=== PATIENT | female | born 1980 | race African-American/Black ===

== ENCOUNTER 2022-03-03 02:24 | Inpatient (IN) | payer BC ==
[2022-03-03] MEDS ORDERED: Butorphanol 1 MG/ML SDV IVPUSH PRN (04:06)
[2022-03-03] MEDS ORDERED: Water For Irrigation,Sterile 1,000 ML Container IRR PRN (04:06)
[2022-03-03] MEDS ORDERED: Sodium Chloride 0.9% 2.5 ML Syringe FLUSH PRN (04:06)
[2022-03-03] MEDS ORDERED: Sodium Chloride 0.9% 10 ML Syringe FLUSH PRN (04:06)
[2022-03-03] MEDS ORDERED: Methylergonovine 0.2 MG/1 ML Amp IM PRN (04:06)
[2022-03-03] MEDS ORDERED: Lidocaine 1% 50 ML MDV INJECT PRN (04:06)
[2022-03-03] MEDS ORDERED: Carboprost Tromethamine 250 MCG/1 ML Amp IM PRN (04:06)
[2022-03-03] MEDS ORDERED: Misoprostol 200 MCG Tab PO PRN (04:06)
[2022-03-03] MEDS ORDERED: Sodium Chloride 0.9% 20 ML SDV IV PRN (04:06)
[2022-03-03] MEDS ORDERED: Tranexamic Acid 1,000 MG in Sodium Chloride 0.9% 100 ML IV PRN (04:06)
[2022-03-03] MEDS ORDERED: Terbutaline 1 MG/ML SDV SUBCUT PRN (09:05)
[2022-03-03] MEDS ORDERED: Misoprostol 25 MCG (1/4 of 100 MCG) Tab PO PRN (09:05)
[2022-03-03] MEDS ORDERED: Oxytocin/0.9 % Sodium Chloride 30 UNIT/500 ML BAG IV SCH (09:15)
[2022-03-03] MEDS: Lactated Ringers 1,000 ML IV SCH ×3 (13:40→22:05)
[2022-03-03] MEDS ORDERED: Ropivacaine/PF 400 MG/200 ML PCA ONE (16:31)
[2022-03-03] MEDS ORDERED: Bupivacaine 0.5% 10 ML SDV ONE ×3 (16:31→22:54)
[2022-03-03] MEDS ORDERED: fentaNYL 100 MCG/2 ML SDV ONE ×2 (19:45→22:54)
[2022-03-03] MEDS ORDERED: NIFEdipine 30 MG Tab.ER PO ONE (21:34)
[2022-03-03] MEDS ORDERED: Labetalol 100 MG/20 ML MDV IVPUSH ONE (23:28)
[2022-03-04] MEDS ORDERED: NIFEdipine 10 MG Cap PO PRN (00:41)
[2022-03-04] MEDS ORDERED: Calcium Gluconate 10% 1 GM/10 ML SDV IV PRN (00:41)
[2022-03-04] MEDS ORDERED: Sodium Chloride 0.9% 20 ML SDV IV PRN (00:41)
[2022-03-04] MEDS ORDERED: Sodium Chloride 0.9% 2.5 ML Syringe FLUSH PRN (00:41)
[2022-03-04] MEDS ORDERED: Sodium Chloride 0.9% 10 ML Syringe FLUSH PRN (00:41)
[2022-03-04] MEDS ORDERED: Labetalol 100 MG/20 ML MDV IVPUSH ONE (00:54)
[2022-03-04] MEDS: Oxytocin/0.9 % Sodium Chloride 30 UNIT/500 ML BAG IV SCH ×2 (01:24→01:51)
[2022-03-04] MEDS ORDERED: Loperamide 2 MG Cap PO PRN (01:38)
[2022-03-04 01:42] LABS: CARBON DIOXIDE,CO2 21.2 mmol/L (21.0-32.0); POTASSIUM,K 3.9 mmol/L (3.5-5.1)
[2022-03-04] MEDS ORDERED: Acetaminophen 500 MG Tab PO PRN (01:51)
[2022-03-04] MEDS ORDERED: Witch Hazel Medicated Pads 40/Jar TOP PRN (01:51)
[2022-03-04] MEDS ORDERED: Bisacodyl 10 MG Supp RECTAL PRN (01:51)
[2022-03-04] MEDS ORDERED: Ibuprofen 400 MG Tab PO PRN (01:51)
[2022-03-04] MEDS ORDERED: Benzocaine/Menthol 20%-0.5% Spray 78 GM Cannister TOP PRN (01:51)
[2022-03-04] MEDS ORDERED: Lanolin 100% Cream 7 GM Tube TOP PRN (01:51)
[2022-03-04] MEDS: Ibuprofen 800 MG Tab PO PRN ×2 (04:43→17:18)
[2022-03-04] MEDS: Acetaminophen 500 MG Tab PO PRN ×2 (04:43→17:17)
[2022-03-04] MEDS: Docusate Sodium 100 MG Cap PO PRN (17:17)
[2022-03-05] MEDS: Ibuprofen 800 MG Tab PO PRN ×2 (10:32→17:20)
[2022-03-05] MEDS: Acetaminophen 500 MG Tab PO PRN ×2 (10:33→17:22)
[2022-03-05] MEDS: Docusate Sodium 100 MG Cap PO PRN (17:19)
[2022-03-06] MEDS: Ibuprofen 800 MG Tab PO PRN (03:57)
[2022-03-06] MEDS: Acetaminophen 500 MG Tab PO PRN (03:58)
[2022-03-06 20:07] VITALS: BP 128/73; PULSE 103
== END 2022-03-06 21:05 | disposition home or self-care (01) | DRG 560 ==
LOC: MW.OBCHECK 02:24 → MW.OB 02:26 → MW.OBCHECK 05:30 → OBSVTOIN 03-04 01:15 → MW.OB 03-04 04:56
PROVIDERS: ADMIT Obstetrics & Gynecology Obstetrics; ATTEND Obstetrics & Gynecology Obstetrics
PROC: 10E0XZZ Delivery of Products of Conception, External Approach (ICD-10-PCS; principal; 2022-03-04)
PROC: 10E0XZZ Delivery of Products of Conception, External Approach (ICD-10-PCS; 2022-03-04)
PROC: 3E0P7VZ Introduction of Hormone into Female Reproductive, Via Natural or Artificial Opening (ICD-10-PCS; 2022-03-04)
PROC: 3E0R3BZ Introduction of Anesthetic Agent into Spinal Canal, Percutaneous Approach (ICD-10-PCS; 2022-03-04)
PROC: 0KQM0ZZ Repair Perineum Muscle, Open Approach (ICD-10-PCS; 2022-03-04)
DX: O60.14X0 Preterm labor third trimester with preterm delivery third trimester, not applicable or unspecified (principal); O24.12 Pre-existing type 2 diabetes mellitus, in childbirth; O10.92 Unspecified pre-existing hypertension complicating childbirth; O99.284 Endocrine, nutritional and metabolic diseases complicating childbirth; E03.9 Hypothyroidism, unspecified; O99.214 Obesity complicating childbirth; O70.1 Second degree perineal laceration during delivery; Z20.822 Contact with and (suspected) exposure to COVID-19; Z37.0 Single live birth; Z3A.36 36 weeks gestation of pregnancy; Z79.890 Hormone replacement therapy; Z79.82 Long term (current) use of aspirin; Z79.899 Other long term (current) drug therapy; Z90.89 Acquired absence of other organs
CPT/HCPCS: 36415; 51702; 59025; 59409; 80053; 81001; 84112; 84550; 85014; 85018; 85027; 86592; 86850; 86900; 86901; A9270-GY; J2590; J2795; J3010; J3490; J7120; U0002

== ENCOUNTER 2024-03-04 00:28 | Inpatient (IN) | payer BC ==
[2024-03-04] MEDS ORDERED: Misoprostol 200 MCG Tab PO PRN (00:33)
[2024-03-04] MEDS ORDERED: Water For Irrigation,Sterile 1,000 ML Container IRR PRN (00:33)
[2024-03-04] MEDS ORDERED: Carboprost Tromethamine 250 MCG/1 mL Vial IM PRN (00:33)
[2024-03-04] MEDS ORDERED: Tranexamic Acid in NACL,ISO-OS 1,000 MG/100 ML Bag IV PRN (00:33)
[2024-03-04] MEDS ORDERED: Sodium Chloride 0.9% 2.5 ML Syringe FLUSH PRN (00:33)
[2024-03-04] MEDS ORDERED: Sodium Chloride 0.9% 10 ML Syringe FLUSH PRN (00:33)
[2024-03-04] MEDS ORDERED: Sodium Chloride 0.9% 20 ML SDV IV PRN (00:33)
[2024-03-04] MEDS ORDERED: Terbutaline 1 MG/ML SDV SUBCUT PRN (00:33)
[2024-03-04] MEDS ORDERED: Methylergonovine 0.2 MG/1 ML Amp IM PRN (00:33)
[2024-03-04] MEDS ORDERED: Lidocaine 1% 50 ML MDV INJECT PRN (00:33)
[2024-03-04] MEDS ORDERED: Nalbuphine 10 MG/1 ML Vial IVPUSH PRN (00:33)
[2024-03-04] MEDS ORDERED: Butorphanol 2 MG/ML SDV IVPUSH PRN (00:33)
[2024-03-04] MEDS ORDERED: Ondansetron 4 MG/2 ML SDV IVPUSH PRN (00:33)
[2024-03-04] MEDS ORDERED: Oxytocin/0.9 % Sodium Chloride 30 UNIT/500 ML BAG IV SCH (00:45)
[2024-03-04] MEDS ORDERED: Tranexamic Acid in NACL,ISO-OS 1,000 MG in Premix Bag 1 BAG IV PRN (00:55)
[2024-03-04 01:17] LABS: HEMATOCRIT 34.4 % (37.0-47.0); HEMOGLOBIN 10.8 g/dL (12.0-16.0); MEAN CORPUSCULAR HGB CONC 31.4 g/dL (32.0-36.0); MEAN CORPUSCULAR VOLUME 82.7 fL (83.0-99.0); MEAN PLATELET VOLUME 9.8 fL (9.4-12.3); PLATELET COUNT,PLT 228 K/uL (150-400); RED BLOOD CELL COUNT 4.16 M/uL (4.10-5.30)
[2024-03-04] MEDS: Misoprostol 25 MCG (1/4 of 100 MCG) Tab PO PRN (01:48)
[2024-03-04] MEDS: Misoprostol 25 MCG (1/4 of 100 MCG) Tab VAG PRN (01:48)
[2024-03-04] MEDS: Lactated Ringers 1,000 ML IV SCH (01:55)
[2024-03-04] MEDS ORDERED: ePHEDrine 50 MG/ML SDV IVPUSH PRN (04:07)
[2024-03-04] MEDS ORDERED: Phenylephrine HCl In 0.9% NaCl 1 MG/10 ML Syringe IVPUSH PRN (04:07)
[2024-03-04] MEDS ORDERED: dexmedeTOMIDine HCl 200 MCG/2 ML SDV EPIDUR SCH (04:15)
[2024-03-04] MEDS: Ropivacaine HCl/PF 400 MG in Premix Bag 1 BAG EPIDUR SCH (04:24)
[2024-03-04] MEDS ORDERED: Misoprostol 25 MCG (1/4 of 100 MCG) Tab VAG PRN (05:00)
[2024-03-04] MEDS: Oxytocin/0.9 % Sodium Chloride 30 UNIT/500 ML BAG IV SCH (09:31)
[2024-03-04] MEDS ORDERED: Docusate Sodium 100 MG Cap PO PRN (13:46)
[2024-03-04] MEDS: fentaNYL 100 MCG/2 ML SDV ONE (14:37)
[2024-03-04] MEDS: dexmedeTOMIDine HCl 200 MCG/2 ML SDV ONE (14:37)
[2024-03-04] MEDS: Ropivacaine HCl/PF 200 ML ONE (14:38)
[2024-03-04] MEDS: Phenylephrine HCl In 0.9% NaCl 1 MG/10 ML Syringe ONE (14:38)
[2024-03-04] MEDS: Witch Hazel Medicated Pads 40/Jar TOP PRN (15:23)
[2024-03-04] MEDS: Benzocaine/Menthol 20%-0.5% Spray 78 GM Cannister TOP PRN (15:24)
[2024-03-04] MEDS: Lanolin 100% Cream 7 GM Tube TOP PRN (15:24)
[2024-03-05] MEDS: Acetaminophen 500 MG Tab PO PRN (01:18)
[2024-03-05] MEDS: Ibuprofen 800 MG Tab PO PRN (01:19)
[2024-03-05 06:49] LABS: HEMATOCRIT 32.5 % (37.0-47.0); HEMOGLOBIN 10.1 g/dL (12.0-16.0)
[2024-03-06 16:44] VITALS: BP 143/88; PULSE 95
== END 2024-03-06 18:40 | disposition home or self-care (01) | DRG 560 ==
LOC: MW.OBCHECK 00:28 → MW.OB 00:29 → UNDOADMOB 00:29 → MW.OB 00:31 → OBSVTOIN 13:10 → MW.OB 13:47 → UNDOADMOB 13:47 → MW.OB 15:05
PROVIDERS: ADMIT Obstetrics & Gynecology Obstetrics; ATTEND Obstetrics & Gynecology Obstetrics
PROC: 10E0XZZ Delivery of Products of Conception, External Approach (ICD-10-PCS; principal; 2024-03-04)
PROC: 0HQ9XZZ Repair Perineum Skin, External Approach (ICD-10-PCS; 2024-03-04)
PROC: 3E0DXGC Introduction of Other Therapeutic Substance into Mouth and Pharynx, External Approach (ICD-10-PCS; 2024-03-04)
DX: O24.429 Gestational diabetes mellitus in childbirth, unspecified control (principal); Z37.0 Single live birth; O70.0 First degree perineal laceration during delivery; Z3A.40 40 weeks gestation of pregnancy
CPT/HCPCS: 36415; 51702; 59025; 59409; 82947; 85014; 85018; 85027; 86592; 86850; 86900; 86901; A9270-GY; J2371; J2590; J2795; J3010; J3490; J7120